=== PATIENT | female | born 1960 | race Caucasian/White ===

== ENCOUNTER 2018-12-29 16:37 | Emergency (ER) | payer OTHER ==
[~2018-12-29] VITALS: Ht 152.4 cm; Wt 71.7 kg
[2018-12-29 17:35] LABS: HEMATOCRIT 42.5 % (37.0-47.0); HEMOGLOBIN 14.5 gm/dL (12.0-15.0); MCH 29.4 pg (26.0-34.0); MCHC 34.1 g/dL (28.0-37.0); MCV 86.3 fL (80.0-100.0); RBC 4.92 mil/uL (4.20-5.00); RDW 14.1 % (10.5-14.5); WBC 7.2 thou/uL (4.0-11.0)
[2018-12-29] MEDS ORDERED: NORFLEX100 MG PO (20:18)
[2018-12-29] MEDS ORDERED: ANTIVERT25 MG PO (20:18)
[2018-12-29] MEDS ORDERED: NAPROXEN375 MG PO (20:18)
[2018-12-29 20:21] LABS: CALCIUM 9.3 mg/dL (8.5-10.1); CREATININE 0.5 mg/dL (0.6-1.0); POTASSIUM 3.8 mmol/L (3.5-5.1)
[2018-12-29 20:46] VITALS: BP 141/61
== END 2018-12-29 20:46 | disposition home or self-care (01) ==
LOC: ER 16:37
PROVIDERS: Emergency Medicine
DX: H81.10 Benign paroxysmal vertigo, unspecified ear (principal); M43.6 Torticollis; F17.210 Nicotine dependence, cigarettes, uncomplicated